=== PATIENT | female | born 1975 | race Caucasian/White ===

== ENCOUNTER 2016-08-13 15:08 | Emergency (ER) | payer OTHER | END 2016-08-13 17:38 | disposition home or self-care (01) | LOC: ED 15:08 | DX: G89.29 Other chronic pain (principal); M54.5 Low back pain; M25.569 Pain in unspecified knee; G40.89 Other seizures; F41.0 Panic disorder [episodic paroxysmal anxiety]; Z79.899 Other long term (current) drug therapy; Z88.6 Allergy status to analgesic agent; Z88.8 Allergy status to other drugs, medicaments and biological substances ==